=== PATIENT | male | born 1940 | race Caucasian/White ===

== ENCOUNTER 2016-12-13 09:40 | Day surgery (SDC) | payer MEDICARE, OTHER ==
[~2016-12-13 09:40] MED LIST: Lactated Ringers 1,000 ML IV SCH; Lidocaine 1%/Sod Bicarbonate in NS 8.4% 1 ML Syringe IV PRN; Sodium Chloride 0.9% 10 ML Syringe FLUSH PRN
--- NOTE | 2016-12-13 10:55 | PCM.PREANE ---
Preanesthetic Assessment - Anesthesia/Transfusion/Family Hx Anesthesia History: Prior Anesthesia Without Reaction Family History of Anesthesia Reaction: No Transfusion History: No Prior Transfusion(s) - Review of Systems General: No Symptoms Pulmonary: No Symptoms Cardiovascular: No Symptoms Gastrointestinal: No symptoms, Other (bloating feeling prn) Neurological: No Symptoms Other: Reports: Thyroid Problems - Physical Assessment NPO Status Date: 12/12/16 NPO Status Time: 23:00 Pulse: 50 O2 Sat by Pulse Oximetry: 100 Respiratory Rate: 20 Blood Pressure: 127/57 Height: 5 ft 11 in Weight: 68.946 kg ASA Class: 3 Mental Status: Alert & Oriented x3 Airway Class: Mallampati = 1 Dentition: Reports: Normal Dentition Thyro-Mental Finger Breadths: 3 Mouth Opening Finger Breadths: 3 ROM/Head Extension: Full Lungs: Clear to auscultation, Normal respiratory effort Cardiovascular: Regular Rate, Regular Rhythm - Imaging/EKG Impressions: 12/13/16 EKG SR rate 65- left anterior fascicular block\ borderline t wave abnormalities\ prolong qt interval - Allergies Allergies/Adverse Reactions: Allergies Allergy/AdvReac Type Severity Reaction Status Date / Time No Known Allergies Allergy Verified 12/12/16 13:44 - Blood Blood Available: No - Acknowledgements Anesthesia Type Planned: MAC Pt an Appropriate Candidate for the Planned Anesthesia: Yes Alternatives and Risks of Anesthesia Discussed w Pt/Guardian: Yes Pt/Guardian Understands and Agrees with Anesthesia Plan: Yes PreAnesthesia Questionnaire Cardiovascular History: Reports: SC, Stents (5-6 years ago and 10 to 12 years ago carotid) Respiratory History: Reports: None Gastrointestinal History: Reports: GERD, Other (see below) Other Gastrointestinal History: RUQ pain Genitourinary History: Reports: Other (see below) Other Genitourinary History: dysuria [employer] RET[employer]ER History: Reports: None Musculoskeletal History: Reports: Other (see below) Other Musculoskeletal History: generalized weakness Neurological History: Reports: None Psychiatric History: Reports: None Endocrine/Metabolic History: Reports: Hypothyroidism Hematologic History: Reports: None Immunologic History: Reports: None Oncologic (Cancer) History: 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) Dermatologic History: Reports: Other (see below) - Past Surgical History Head Surgeries/Procedures: Reports: None HEENT Surgical History: Reports: Oral surgery, Tonsillectomy Cardiovascular Surgical History: Reports: Coronary artery stent - SUBSTANCE USE Smoking Status *Q: Former Smoker Tobacco Use Within Last Twelve Months: No Second Hand Smoke Exposure: No Days Per Week of Alcohol Use: 2 Number of Drinks Per Day: 2 Total Drinks Per Week: 4 Recreational Drug Use History: No - HOME MEDS Home Medications: Home Meds Acetylcysteine [R-Bjtwvs-g-Cysteine] 600 mg PO DAILY 12/12/16 [History] Adrenal Caps 2 cap PO DAILY 12/12/16 [History] Ascorbate Calcium [Vitamin C] 500 mg PO DAILY 12/12/16 [History] Cholecalciferol (Vitamin D3) [Vitamin D3] 5,000 unit PO DAILY 12/12/16 [History] Cortisol Glass Cut Off Tender 1 tab PO BEDTIME 12/12/16 [History] Curamin 95 mg PO DAILY 12/12/16 [History] Levothyroxine [Synthroid] 100 mcg PO DAILY 12/12/16 [History] Methyl B-12 1 shana PO DAILY 12/12/16 [History] Multivitamin with Minerals [Multiple Vitamin] 1 tab PO DAILY 12/12/16 [History] [place]-3/DHA/Epa/Fish Oil [[place] 3 500 Softgel] 2 cap PO DAILY 12/12/16 [History] Ubidecarenone [Coq-10] 1 cap PO DAILY 12/12/16 [History] Valerian Root 100 mg PO BEDTIME 12/12/16 [History] - CURRENT (IN HOUSE) MEDS Current Meds: Current Medications Lactated Ringer's (Ringers, Lactated) 1,000 mls @ 125 mls/hr IV ASDIRECTED SNEHAL Lidocaine/Sodium Bicarbonate (Buffered Lidocaine 1% In Ns 8.4%) 0.25 ml IV ONETIME PRN PRN Reason: Prior to IV Start Sodium Chloride (Saline Flush) 10 ml FLUSH ASDIRECTED PRN PRN Reason: Keep Vein Open
[2016-12-13] MEDS ORDERED: Lidocaine 1% 4 ML ONE (11:07)
[2016-12-13] MEDS ORDERED: Propofol 200 MG/20 ML SDV ONE ×3 (11:07→12:31)
--- NOTE | 2016-12-13 12:36 | PCM.OPNOTE ---
- General Post-Op/Procedure Note Date of Surgery/Procedure: 12/13/16 Operative Procedure(s): 1. EGD with biopsies. 2. colonoscopy with rectal polypectomy x2 Findings: 1. endoscoopic Chicas's change 2. internal hemorrhoids 3. rectal polyp times 2 -- 5mm diameter Pre Op Diagnosis: weight loss and history of lymphoma Post-Op Diagnosis: 1. endoscopic Chicas's change. 2. diminutive rectal polyps. 3. internal hemorrhoids Anesthesia Technique: MAC, Moderate sedation Primary Surgeon: Esequiel Elias Pathology: 1. distal esophageal biopsy 2. two small rectal polyps EBL in mLs: 0 Complications: None Condition: Good Free Text/Narrative:: After adequate IV sedation and analgesia was obtained. The patient was placed on his left side. Through a bite-block lubricated upper endoscope was inserted into the esophagus and advanced record and for the stomach without difficulty. Air was given here. Following entry into the duodenum. The third, second, and first portion were endoscopically normal. The antrum was unremarkable as well. In the retroflexed view. There was a no hiatal hernia. The fundus and cardiac, regions normal. The roof also normal as well. There were no mass, lesions seen. The scope was withdrawn to the GE junction appeared to be a subtle color change in this area. This was consistent with Chicas's endoscopically. For histologic confirmation. I took 3 biopsies. The body of the esophagus was unremarkable. Perianal inspection was unremarkable. A lubricated colonoscope was inserted into the rectum and advanced to the cecum without difficulty. The bowel preparation was adequate. The cecum, right colon, and transverse colons were otherwise unremarkable. No mass, lesions were present. The descending colon was endoscopically normal. The sigmoid was endoscopically normal as well. There were two small rectal polyps, which were removed with cold forceps. Within the retroflexed view the hemorrhoids were seen. Photographs were taken for the patient and for the record. Air was removed, as I finished the procedure, which he tolerated well.
--- NOTE | 2016-12-13 12:38 | PCM48HPAN ---
Post Anesthesia Note - EVALUATION WITHIN 48HRS OF ANESTHETIC Vital Signs in Normal Range: Yes Patient Participated in Evaluation: Yes Respiratory Function Stable: Yes Airway Patent: Yes Cardiovascular Function Stable: Yes Hydration Status Stable: Yes Pain Control Satisfactory: Yes Nausea and Vomiting Control Satisfactory: Yes Mental Status Recovered: Yes
[2016-12-13 13:08] VITALS: BP 135/53
== END 2016-12-13 13:35 | disposition home or self-care (01) ==
LOC: JD.SDS 09:40
PROVIDERS: ATTEND Surgery
DX: K62.1 Rectal polyp (principal); K64.8 Other hemorrhoids; K21.9 Gastro-esophageal reflux disease without esophagitis; E03.9 Hypothyroidism, unspecified; Z79.899 Other long term (current) drug therapy; Z90.49 Acquired absence of other specified parts of digestive tract; Z95.5 Presence of coronary angioplasty implant and graft; Z98.890 Other specified postprocedural states; Z78.9 Other specified health status; Z87.891 Personal history of nicotine dependence
CPT/HCPCS: 43239; 45380; 88305; 93005; J7120; 00810; J2704

== ENCOUNTER 2022-01-22 17:53 | Emergency (ER) | payer MEDICARE, OTHER ==
[2022-01-22 18:24] VITALS: BP 159/72; PULSE 61
== END 2022-01-22 20:00 | disposition home or self-care (01) ==
LOC: JD.ED 17:53
DX: G45.9 Transient cerebral ischemic attack, unspecified (principal); E03.9 Hypothyroidism, unspecified; Z79.899 Other long term (current) drug therapy
CPT/HCPCS: 36415; 70450; 70450-26; 80053; 82947; 83735; 85025; 85610; 93005; 93010; 99284; 99285